=== PATIENT | male | born 1950 | race Caucasian/White ===

== ENCOUNTER 2020-01-27 15:45 | Emergency (ER) | payer MEDICARE ==
[~2020-01-27] VITALS: Ht 180.3 cm; Wt 100.9 kg
[2020-01-27 16:21] LABS: BASOPHILS % (AUTO) 0.4 % (0-1); EOSINOPHILS # (AUTO) 0.1 X10'3 (0-0.9); EOSINOPHILS % (AUTO) 1.4 % (0-6); HEMATOCRIT 46.4 % (42.0-52.0); HEMOGLOBIN 15.8 g/dl (14.0-17.9); LYMPHOCYTES # (AUTO) 1.8 X10'3 (1.1-4.8); LYMPHOCYTES % (AUTO) 27.9 % (21-51); MEAN CORPUSCULAR HEMOGLOBIN 31.5 PG (27.0-31.0); MEAN CORPUSCULAR HGB CONC 34.1 g/dL (33.0-36.5); MEAN CORPUSCULAR VOLUME 92.5 FL (78-98); MEAN PLATELET VOLUME 9.3 FL (7.4-10.4); MONOCYTES # (AUTO) 0.7 X10'3 (0-0.9); MONOCYTES % (AUTO) 10.8 % (2-12); NEUTROPHILS # (AUTO) 3.8 X10'3 (1.8-7.7); NEUTROPHILS % (AUTO) 59.5 % (42-75); PLATELET COUNT 229 X10'3 (140-440); RED BLOOD COUNT 5.02 X10'6 (4.70-6.10); RED CELL DISTRIBUTION WIDTH 13.4 % (11.5-14.5); WHITE BLOOD COUNT 6.5 X10'3 (4.5-11.0)
[2020-01-27 16:29] LABS: PARTIAL THROMBOPLASTIN TIME 29 SECONDS (22-32)
[2020-01-27 16:30] LABS: ALANINE AMINOTRANSFERASE 38 U/L (12-78); ALBUMIN 4.1 G/DL (3.4-5.0); ALBUMIN/GLOBULIN RATIO 1.1 (1.1-1.5); ALKALINE PHOSPHATASE 82 IU/L (46-116); ANION GAP 8 (8-16); ASPARTATE AMINO TRANSFERASE 23 U/L (10-37); BILIRUBIN,TOTAL 0.6 MG/DL (0.1-1.0); BLOOD UREA NITROGEN 8 MG/DL (7-18); BUN/CREATININE RATIO 7.1 (5.4-32.0); CALCIUM 9.3 MG/DL (8.5-10.1); CHLORIDE 102 MMOL/L (99-107); CREATININE 1.12 MG/DL (0.60-1.10); GLUCOSE 103 MG/DL (70-104); POTASSIUM 3.5 MMOL/L (3.5-5.1); SODIUM 139 MMOL/L (135-145); TOTAL CARBON DIOXIDE 28.8 MMOL/L (24-32); TOTAL PROTEIN 7.7 G/DL (6.4-8.2); eGFR 65 ML/MIN
[2020-01-27 16:34] LABS: TROPONIN I < 0.04 NG/ML (0.0-0.05)
[2020-01-27] MEDS ORDERED: NO HOME MEDS (17:46)
[2020-01-27 18:45] VITALS: BP 159/86
[2020-01-27] MEDS ORDERED: MULT-1172 (23:31)
[2020-01-27] MEDS ORDERED: LANS15CA10 PO (23:31)
== END 2020-01-27 18:47 | disposition home or self-care (01) ==
LOC: ER 15:46 → MERGE 15:46 → ER 18:47
DX: G43.109 Migraine with aura, not intractable, without status migrainosus (principal); K22.70 Barrett's esophagus without dysplasia
CPT/HCPCS: 36415; 70450; 71045; 80053; 84484; 85025; 85610; 85730; 93005; 99285

== ENCOUNTER 2020-01-27 22:14 | Inpatient (IN) | payer MEDICARE ==
[~2020-01-27] VITALS: Ht 180.3 cm; Wt 101.5 kg
[~2020-01-27 22:14] MED LIST: NO HOME MEDS
--- NOTE | 2020-01-27 22:36 | NUR ---
per LUPILLO Dorsey - hold on neuro consult for now
--- NOTE | 2020-01-27 22:41 | NUR ---
Patient is well oriented, expressive asphia present. No facial droop. 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 Gait is slow but normal. EKG is done. Report to SINA Barragan. Patient placed in room 3. Juan WESLEY saw patient earlier, he had just seen patient at bedside.
[2020-01-27] MEDS ORDERED: iohexol 350MG/ML 100ml bottle IV ONE (23:04)
[2020-01-27 23:29] LABS: CHOL/HDL RATIO 5.6 (0.00-4.99); CHOLESTEROL 220 MG/DL (0-200); HDL CHOLESTEROL 39 MG/DL (35-60); HEMOGLOBIN A1C 5.5 % (4.5-6.2); LDL CHOLESTEROL 150 MG/DL (50-100); TRIGLYCERIDES 151 MG/DL (20-135)
[2020-01-27] MEDS ORDERED: LANS15CA10 PO (23:31)
[2020-01-27] MEDS ORDERED: MULT-1172 (23:31)
[2020-01-28] MEDS ORDERED: aspirin 81mg tab.chew PO ONE (00:20)
--- NOTE | 2020-01-28 00:27 | NUR ---
No changes. He is just hanging out in his room. Gave him his ASA, PA student was in to talk to him about the plan of care.
--- NOTE | 2020-01-28 01:21 | NUR ---
Zeeshan omayra in ED - 01/28/20 at 0127 by GUY Patient remains well oriented with good csm's all ext. Discharged to custody of [employer]. Patient has clearance for [facility]. He is ambulatory upon discharge.
--- NOTE | 2020-01-28 01:27 | NUR ---
Patient in no distress. Intermittent asphasia. PERRL, no facial droop. 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 Patient gait is normal. He ambulates to restroom to void, he returns to bed under own power. This RN is covering for patient primary nurse on lunch break.
[2020-01-28] MEDS ORDERED: magnesium 4gm in 100ml NS 100 ML IV PRN (01:45)
[2020-01-28] MEDS ORDERED: magnesium hydroxide 30ml (MOM) UD suspension PO PRN (01:45)
[2020-01-28] MEDS ORDERED: acetaminophen 325mg tablet PO PRN (01:45)
[2020-01-28] MEDS ORDERED: magnesium 2GM in 50ml NS 50 ML IV PRN (01:45)
[2020-01-28] MEDS ORDERED: mag hydrox/Alum hydrox/simeth 30ml oral suspension PO PRN (01:45)
[2020-01-28] MEDS ORDERED: ondansetron/PF 4mg/2ml inj IV PRN (01:45)
[2020-01-28] MEDS ORDERED: potassium Cl 20 mEq SR tablet PO PRN ×2 (01:45)
[2020-01-28] MEDS ORDERED: potassium CL 10mEq/100ml bag 100 ML IV PRN ×2 (01:45)
--- NOTE | 2020-01-28 02:23 | NUR ---
Report given to me by Oly ANDINO and I will give report to Valeria ANDINO once she is back from her lunch break.
[2020-01-28 02:35] VITALS: BP 144/75
--- NOTE | 2020-01-28 02:35 | NUR ---
Patient arrived to floor via w/c and ambulated to his bed without difficulty.
--- NOTE | 2020-01-28 06:27 | NUR ---
Problems reprioritized. Patient report given, questions answered & plan of care reviewed with Aylin ANDINO.
[2020-01-28 07:00] VITALS: BP 131/73
[2020-01-28] MEDS: K and/or MAG REPLACEMENT MC SCH ×2 (07:52→19:32)
[2020-01-28] MEDS: aspirin 81mg tablet.DR PO SCH (08:10)
[2020-01-28] MEDS: atorvastatin 20mg tablet PO SCH (08:11)
[2020-01-28] MEDS: lansoprazole 15mg solutab PO SCH (08:11)
--- NOTE | 2020-01-28 08:26 | NUR ---
PAGER ID: [phone] MESSAGE: [id number] Chaz Sweeney Can I get Ativan for the MRI? Aylin [phone]
[2020-01-28] MEDS ORDERED: LORazepam 2 mg/ml vial IV ONE (08:30)
[2020-01-28 08:54] LABS: BASOPHILS % (AUTO) 0.2 % (0-1); EOSINOPHILS % (AUTO) 0.4 % (0-6); HEMATOCRIT 46.4 % (42.0-52.0); HEMOGLOBIN 16.1 g/dl (14.0-17.9); LYMPHOCYTES % (AUTO) 11.5 % (21-51); MEAN CORPUSCULAR HEMOGLOBIN 31.9 PG (27.0-31.0); MEAN CORPUSCULAR HGB CONC 34.7 g/dL (33.0-36.5); MEAN CORPUSCULAR VOLUME 92.1 FL (78-98); MEAN PLATELET VOLUME 9.1 FL (7.4-10.4); MONOCYTES # (AUTO) 0.8 X10'3 (0-0.9); MONOCYTES % (AUTO) 8.7 % (2-12); NEUTROPHILS # (AUTO) 6.9 X10'3 (1.8-7.7); NEUTROPHILS % (AUTO) 79.2 % (42-75); PLATELET COUNT 228 X10'3 (140-440); RED BLOOD COUNT 5.04 X10'6 (4.70-6.10); RED CELL DISTRIBUTION WIDTH 13.7 % (11.5-14.5); WHITE BLOOD COUNT 8.7 X10'3 (4.5-11.0)
[2020-01-28 09:13] LABS: PARTIAL THROMBOPLASTIN TIME 30 SECONDS (22-32)
[2020-01-28 09:17] LABS: ALANINE AMINOTRANSFERASE 38 U/L (12-78); ALBUMIN 4.3 G/DL (3.4-5.0); ALBUMIN/GLOBULIN RATIO 1.1 (1.1-1.5); ALKALINE PHOSPHATASE 83 IU/L (46-116); ANION GAP 7 (8-16); ASPARTATE AMINO TRANSFERASE 25 U/L (10-37); BILIRUBIN,TOTAL 1.1 MG/DL (0.1-1.0); BLOOD UREA NITROGEN 7 MG/DL (7-18); BUN/CREATININE RATIO 6.5 (5.4-32.0); C-REACTIVE PROTEIN 0.06 MG/DL (0.0-0.5); CALCIUM 9.6 MG/DL (8.5-10.1); CHLORIDE 103 MMOL/L (99-107); CREATININE 1.07 MG/DL (0.60-1.10); GLUCOSE 100 MG/DL (70-104); POTASSIUM 3.7 MMOL/L (3.5-5.1); SODIUM 139 MMOL/L (135-145); TOTAL CARBON DIOXIDE 28.6 MMOL/L (24-32); TOTAL PROTEIN 8.3 G/DL (6.4-8.2); eGFR 69 ML/MIN
[2020-01-28 09:46] LABS: D-DIMER 0.38 MG/L FEU (0-0.50)
[2020-01-28 10:00] VITALS: BP 137/84
[2020-01-28] MEDS ORDERED: pneumococcal 23-VAL P-sac vacc 25 mcg/0.5ml vial IMVAC ONE (10:00)
[2020-01-28 14:00] VITALS: BP 137/83
--- NOTE | 2020-01-28 15:24 | NUR ---
Patient can understand what you are saying and point to things wrong in the pictures, and same thing in pictures in room. Addendum: 01/28/20 at 1549 by Aylin Soni RN Amended: Links added.
--- NOTE | 2020-01-28 17:12 | NUR ---
PAGER ID: [phone] MESSAGE: [id number] Chaz Sweeney Patient requested speech therapy after discharge. Aylin [phone]
[2020-01-28 18:00] VITALS: BP 129/79
--- NOTE | 2020-01-28 18:30 | NUR ---
Patient in room ORTHO 4023. I have received report from Aylin ANDINO and had the opportunity to ask questions and assume patient care.
--- NOTE | 2020-01-28 18:31 | NUR ---
Problems reprioritized. Patient report given, questions answered & plan of care reviewed with KIERRA ANDINO.
[2020-01-28] MEDS: clopidogrel 75mg tablet PO SCH (19:30)
[2020-01-28] MEDS ORDERED: enoxaparin 40mg/0.4ml syringe SQ SCH (20:00)
[2020-01-28] MEDS ORDERED: acetaminophen 325mg tablet PO ONE (20:00)
[2020-01-28] MEDS ORDERED: normal saline 250ml IV soln 250 ML IV ONE (20:10)
[2020-01-28 22:00] VITALS: BP 145/84
[2020-01-29 02:00] VITALS: BP 123/77
[2020-01-29 06:00] VITALS: BP 152/86
--- NOTE | 2020-01-29 06:00 | NUR ---
Patient in room ORTHO 4023. I have received report from [facility] and had the opportunity to ask questions and assume patient care.
--- NOTE | 2020-01-29 06:09 | NUR ---
Problems reprioritized. Patient report given, questions answered & plan of care reviewed with Shirlene ANDINO.
[2020-01-29 06:32] LABS: ALANINE AMINOTRANSFERASE 33 U/L (12-78); ALBUMIN 4.2 G/DL (3.4-5.0); ALBUMIN/GLOBULIN RATIO 1.2 (1.1-1.5); ALKALINE PHOSPHATASE 80 IU/L (46-116); ANION GAP 7 (8-16); ASPARTATE AMINO TRANSFERASE 30 U/L (10-37); BILIRUBIN,TOTAL 1.7 MG/DL (0.1-1.0); BLOOD UREA NITROGEN 10 MG/DL (7-18); BUN/CREATININE RATIO 10.6 (5.4-32.0); CHLORIDE 99 MMOL/L (99-107); CREATININE 0.94 MG/DL (0.60-1.10); GLUCOSE 90 MG/DL (70-104); MAGNESIUM 2.2 MG/DL (1.5-2.4); POTASSIUM 3.7 MMOL/L (3.5-5.1); SODIUM 135 MMOL/L (135-145); TOTAL CARBON DIOXIDE 28.9 MMOL/L (24-32); TOTAL PROTEIN 7.8 G/DL (6.4-8.2); eGFR 80 ML/MIN
[2020-01-29 06:34] LABS: BASOPHILS % (AUTO) 0.3 % (0-1); EOSINOPHILS # (AUTO) 0.1 X10'3 (0-0.9); HEMATOCRIT 44.7 % (42.0-52.0); HEMOGLOBIN 15.6 g/dl (14.0-17.9); LYMPHOCYTES # (AUTO) 1.1 X10'3 (1.1-4.8); LYMPHOCYTES % (AUTO) 15.9 % (21-51); MEAN CORPUSCULAR VOLUME 91.5 FL (78-98); MEAN PLATELET VOLUME 9.5 FL (7.4-10.4); MONOCYTES # (AUTO) 0.7 X10'3 (0-0.9); MONOCYTES % (AUTO) 10.2 % (2-12); NEUTROPHILS # (AUTO) 5.2 X10'3 (1.8-7.7); NEUTROPHILS % (AUTO) 72.6 % (42-75); PLATELET COUNT 219 X10'3 (140-440); RED BLOOD COUNT 4.88 X10'6 (4.70-6.10); RED CELL DISTRIBUTION WIDTH 13.5 % (11.5-14.5); WHITE BLOOD COUNT 7.1 X10'3 (4.5-11.0)
[2020-01-29] MEDS: K and/or MAG REPLACEMENT MC SCH (08:00)
[2020-01-29] MEDS: aspirin 81mg tablet.DR PO SCH (08:08)
[2020-01-29] MEDS: clopidogrel 75mg tablet PO SCH (08:09)
[2020-01-29] MEDS: atorvastatin 20mg tablet PO SCH (08:09)
[2020-01-29] MEDS: lansoprazole 15mg solutab PO SCH (08:10)
[2020-01-29 10:00] VITALS: BP 128/79
[2020-01-29] MEDS ORDERED: CLOP75TA35 PO (14:39)
[2020-01-29] MEDS ORDERED: ASPI-1071 PO (14:39)
[2020-01-29] MEDS ORDERED: ATOR80TA PO (14:39)
--- NOTE | 2020-01-29 15:21 | NUR ---
Reviewed discharge instructions with pt. Pt verbalized understanding. Pt dressed himself, gathered belongings and was wheeled downstairs to be driven home by family.
== END 2020-01-29 15:25 | disposition home or self-care (01) | DRG 66 ==
LOC: ER 22:14 → ED HOLD 01-28 01:41 → ORTHO 4S 01-28 02:35
PROVIDERS: ADMIT Family Medicine; ATTEND Family Medicine
PROC: B3281ZZ Computerized Tomography (CT Scan) of Bilateral Internal Carotid Arteries using Low Osmolar Contrast (ICD-10-PCS; principal; 2020-01-27)
PROC: B32G1ZZ Computerized Tomography (CT Scan) of Bilateral Vertebral Arteries using Low Osmolar Contrast (ICD-10-PCS; 2020-01-27)
PROC: 3E0234Z Introduction of Serum, Toxoid and Vaccine into Muscle, Percutaneous Approach (ICD-10-PCS; 2020-01-28)
DX: I63.9 Cerebral infarction, unspecified (principal); I65.22 Occlusion and stenosis of left carotid artery; E78.5 Hyperlipidemia, unspecified; I10 Essential (primary) hypertension; R10.13 Epigastric pain; K21.9 Gastro-esophageal reflux disease without esophagitis; G44.009 Cluster headache syndrome, unspecified, not intractable; Z82.49 Family history of ischemic heart disease and other diseases of the circulatory system; Z87.891 Personal history of nicotine dependence; Z23 Encounter for immunization
CPT/HCPCS: 36415; 70496; 70498; 70547; 70551; 80053; 80061; 83036; 83735; 84443; 85025; 85379; 85610; 85651; 85730; 86140; 87081; 90732; 92508; 92616; 93306; 93308; 97110; 97116; 97162; 99285; G0378; J1650; J2060; J7050; Q9967

== ENCOUNTER 2020-02-01 05:46 | Emergency (ER) | payer MEDICARE ==
[~2020-02-01] VITALS: Ht 180.3 cm; Wt 90.9 kg
[~2020-02-01 05:46] MED LIST changes: +ASPI-1071 PO; +ATOR80TA PO; +CLOP75TA35 PO; +LANS15CA10 PO; +MULT-1172; -NO HOME MEDS
[2020-02-01 06:11] LABS: BASOPHILS % (AUTO) 0.3 % (0-1); EOSINOPHILS # (AUTO) 0.1 X10'3 (0-0.9); HEMATOCRIT 45.8 % (42.0-52.0); HEMOGLOBIN 15.8 g/dl (14.0-17.9); LYMPHOCYTES # (AUTO) 1.2 X10'3 (1.1-4.8); LYMPHOCYTES % (AUTO) 16.8 % (21-51); MEAN CORPUSCULAR HEMOGLOBIN 31.9 PG (27.0-31.0); MEAN CORPUSCULAR HGB CONC 34.6 g/dL (33.0-36.5); MEAN CORPUSCULAR VOLUME 92.1 FL (78-98); MEAN PLATELET VOLUME 9.1 FL (7.4-10.4); MONOCYTES # (AUTO) 0.7 X10'3 (0-0.9); MONOCYTES % (AUTO) 10.2 % (2-12); NEUTROPHILS # (AUTO) 5.3 X10'3 (1.8-7.7); NEUTROPHILS % (AUTO) 71.7 % (42-75); PLATELET COUNT 214 X10'3 (140-440); RED BLOOD COUNT 4.97 X10'6 (4.70-6.10); RED CELL DISTRIBUTION WIDTH 13.2 % (11.5-14.5); WHITE BLOOD COUNT 7.4 X10'3 (4.5-11.0)
[2020-02-01 06:22] LABS: PARTIAL THROMBOPLASTIN TIME 26 SECONDS (22-32)
[2020-02-01 06:24] LABS: ALANINE AMINOTRANSFERASE 47 U/L (12-78); ALBUMIN 4.3 G/DL (3.4-5.0); ALBUMIN/GLOBULIN RATIO 1.2 (1.1-1.5); ALKALINE PHOSPHATASE 85 IU/L (46-116); ANION GAP 7 (8-16); ASPARTATE AMINO TRANSFERASE 40 U/L (10-37); BLOOD UREA NITROGEN 10 MG/DL (7-18); BUN/CREATININE RATIO 9.6 (5.4-32.0); CALCIUM 9.3 MG/DL (8.5-10.1); CHLORIDE 99 MMOL/L (99-107); CREATININE 1.04 MG/DL (0.60-1.10); GLUCOSE 129 MG/DL (70-104); POTASSIUM 3.9 MMOL/L (3.5-5.1); SODIUM 135 MMOL/L (135-145); TOTAL CARBON DIOXIDE 28.9 MMOL/L (24-32); eGFR 71 ML/MIN
[2020-02-01 06:27] LABS: TROPONIN I < 0.04 NG/ML (0.0-0.05)
--- NOTE | 2020-02-01 06:37 | NUR ---
called to let us know she thought the pt. was worse this morning than 1 week previously. Bethany, [phone]. Agreed to call her back with any new updates on his condition.
--- NOTE | 2020-02-01 08:00 | NUR ---
Bethany, [facility] #[phone]
[2020-02-01 08:52] VITALS: BP 115/84
== END 2020-02-01 09:10 | disposition home or self-care (01) ==
LOC: ER 05:47
DX: R47.02 Dysphasia (principal); R53.1 Weakness; Z86.73 Personal history of transient ischemic attack (TIA), and cerebral infarction without residual deficits; R11.0 Nausea; R53.83 Other fatigue; K21.9 Gastro-esophageal reflux disease without esophagitis; Z72.89 Other problems related to lifestyle; Z98.890 Other specified postprocedural states; Z79.82 Long term (current) use of aspirin; Z79.899 Other long term (current) drug therapy
CPT/HCPCS: 36415; 70450; 71045; 80053; 84484; 85025; 85610; 85730; 93005; 99285

== ENCOUNTER 2020-04-11 12:17 | Day surgery (SDC) | payer MEDICARE ==
[2020-04-07 11:12] LABS: BASOPHILS % (AUTO) 0.4 % (0-1); EOSINOPHILS # (AUTO) 0.1 X10'3 (0-0.9); EOSINOPHILS % (AUTO) 1.4 % (0-6); HEMATOCRIT 43.4 % (42.0-52.0); HEMOGLOBIN 14.9 g/dl (14.0-17.9); LYMPHOCYTES # (AUTO) 0.9 X10'3 (1.1-4.8); LYMPHOCYTES % (AUTO) 18.3 % (21-51); MEAN CORPUSCULAR HEMOGLOBIN 31.5 PG (27.0-31.0); MEAN CORPUSCULAR HGB CONC 34.4 g/dL (33.0-36.5); MEAN CORPUSCULAR VOLUME 91.7 FL (78-98); MONOCYTES # (AUTO) 0.6 X10'3 (0-0.9); MONOCYTES % (AUTO) 11.4 % (2-12); NEUTROPHILS # (AUTO) 3.4 X10'3 (1.8-7.7); NEUTROPHILS % (AUTO) 68.5 % (42-75); PLATELET COUNT 197 X10'3 (140-440); RED BLOOD COUNT 4.74 X10'6 (4.70-6.10); RED CELL DISTRIBUTION WIDTH 13.6 % (11.5-14.5); WHITE BLOOD COUNT 4.9 X10'3 (4.5-11.0)
[2020-04-07 11:25] LABS: PARTIAL THROMBOPLASTIN TIME 27 SECONDS (22-32)
[2020-04-07 11:28] LABS: ANION GAP 6 (8-16); BLOOD UREA NITROGEN 9 MG/DL (7-18); BUN/CREATININE RATIO 9.7 (5.4-32.0); CALCIUM 9.3 MG/DL (8.5-10.1); CHLORIDE 103 MMOL/L (99-107); CREATININE 0.93 MG/DL (0.60-1.10); GLUCOSE 107 MG/DL (70-104); SODIUM 138 MMOL/L (135-145); TOTAL CARBON DIOXIDE 28.9 MMOL/L (24-32); eGFR 81 ML/MIN
[2020-04-07 11:30] LABS: POTASSIUM 4.4 MMOL/L (3.5-5.1)
[2020-04-11] VITALS (8 sets, daily range): BP systolic 123–151; BP diastolic 72–83
[~2020-04-11] VITALS: Ht 180.3 cm; Wt 98.9 kg
[~2020-04-11 12:17] MED LIST changes: -ATOR80TA PO; +CLOP75TA34 PO; -CLOP75TA35 PO
[2020-04-11] MEDS ORDERED: diphenhydrAMINE 25mg capsule PO PRN (12:50)
[2020-04-11] MEDS ORDERED: LORazepam 0.5 MG tablet PO PRN (12:50)
[2020-04-11] MEDS ORDERED: normal saline 1,000 ML IV SCH (12:50)
[2020-04-11] MEDS ORDERED: ROSU40TA PO (13:06)
[2020-04-11] MEDS ORDERED: CLOP75TA34 PO (13:06)
[2020-04-11] MEDS ORDERED: ASPI-1265 PO (13:06)
[2020-04-11] MEDS ORDERED: iohexol 350MG/ML 100ml bottle IV ONE (15:57)
[2020-04-11] MEDS ORDERED: phenylephrine 10mg/ml inj. ONE (15:57)
[2020-04-11] MEDS ORDERED: atropine 0.1mg/ml 10ml syringe ONE (15:57)
[2020-04-11] MEDS ORDERED: heparin 1,000 UNITS/NS 500ml 500 ML ONE ×2 (15:57→16:10)
[2020-04-11] MEDS ORDERED: DOPamine 400mg/D5W 250ml 250 ML IV ONE (15:57)
[2020-04-11] MEDS ORDERED: LIDOcaine 1% (10mg/ml)w/preservative injection 20ml MDV ONE (16:04)
[2020-04-11] MEDS ORDERED: proCHLORperazine 10 MG/2 ml inj IV PRN (18:00)
[2020-04-11] MEDS ORDERED: acetaminophen 325mg tablet PO PRN (18:00)
[2020-04-11] MEDS ORDERED: ondansetron/PF 4mg/2ml inj IV PRN (18:00)
[2020-04-11] MEDS ORDERED: HYDROcodone/acetaminophen 10/325mg tab PO PRN (18:00)
[2020-04-11] MEDS ORDERED: OXAZEpam 15mg capsule PO PRN (18:00)
[2020-04-11] MEDS ORDERED: HYDROcodone/acetaminophen 5mg/325mg tablet PO PRN (18:00)
== END 2020-04-11 19:15 | disposition home or self-care (01) ==
LOC: SSTAY O 12:17
PROVIDERS: ATTEND Internal Medicine Interventional Cardiology
DX: I65.23 Occlusion and stenosis of bilateral carotid arteries (principal); K21.9 Gastro-esophageal reflux disease without esophagitis; G54.5 Neuralgic amyotrophy; E78.5 Hyperlipidemia, unspecified; Z86.73 Personal history of transient ischemic attack (TIA), and cerebral infarction without residual deficits; Z79.82 Long term (current) use of aspirin; Z79.01 Long term (current) use of anticoagulants; Z79.899 Other long term (current) drug therapy
CPT/HCPCS: 36223; 36415; 80048; 85025; 85610; 85730; 93005; C1760; C1769; C1894; J0461; J1265; J1644; J2001; J2370; J7030; Q0163; Q9967; A4620

== ENCOUNTER 2022-11-06 10:29 | Emergency (ER) | payer MEDICARE ==
[~2022-11-06] VITALS: Ht 182.2 cm; Wt 88.6 kg
[~2022-11-06 10:29] MED LIST changes: -ASPI-1071 PO; +ASPI-1265 PO; -LANS15CA10 PO; +LANS15CA14 PO; -MULT-1172; +ROSU40TA PO
[2022-11-06 12:14] VITALS: BP 130/83; PULSE 62; RESP 18; TEMP 97.9; O2SAT 97
[2022-11-06] MEDS ORDERED: NAPR-56 PO (12:17)
[2022-11-06] MEDS ORDERED: SULF1TAB49 PO (12:17)
[2022-11-06] MEDS ORDERED: CEPH-585 PO (12:17)
== END 2022-11-06 12:32 | disposition home or self-care (01) ==
LOC: ER 10:29
DX: L02.611 Cutaneous abscess of right foot (principal); K21.9 Gastro-esophageal reflux disease without esophagitis; Z79.899 Other long term (current) drug therapy
CPT/HCPCS: 93971; 99284